=== PATIENT | male | born 1950 | race Caucasian/White ===

== ENCOUNTER → 2024-03-13 | Outpatient (CLI) | payer MEDICARE, MEDICAID, SELFPAY ==
--- NOTE | 2024-03-13 16:00 | XR_ITS ---
Examination: CT brain head without contrast. 2-D sagittal coronal reconstructions Date and time of exam:March 13, 2024 1614 hrs. Comparison October 24, 2023 Indications: Transient ischemic attack episodes beginning 5 months ago, acute right basal ganglia hemorrhage 2.7 x 3.4 x 2.[address] brain scan October 24, 2023 CTDI: vol (mGy):55.8 DLP: (mGycm):1149 Technique: Multiple CT axial sections of the brain have been obtained, 5 mm slice thickness. Contrast has not been administered. 2-D sagittal, coronal reconstructions have been obtained Low dose protocols were performed. One or more of the following dose reduction techniques were used; automated exposure control, adjustment of the mA and/or KV according to patient size, use of iterative reconstruction technique. Findings: No significant ventricular enlargement. Right basal ganglia old infarct, possible very minimal residual hemorrhage in the right basal ganglia image 25 No mass effect or midline shift Basal cisterns are not remarkable. Fourth ventricle is midline. Cranial vault intact. 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
== END | disposition home or self-care (01) ==
LOC: CCTX 16:02
PROVIDERS: PCP Internal Medicine; Referring Provider Psychiatry & Neurology Neurology; Visit Provider Psychiatry & Neurology Neurology
DX: Z86.73 Personal history of transient ischemic attack (TIA), and cerebral infarction without residual deficits (principal)
CPT/HCPCS: 70450

== ENCOUNTER → 2024-07-07 | Outpatient (CLI) | payer MEDICARE, MEDICAID, SELFPAY ==
[2024-07-07 09:42] LABS: Collection Type, Urine Clean Catch
[2024-07-07 09:53] LABS: Basophils # (Auto) 0.1 Thou/mm3 (0.0-0.2); Basophils % (Auto) 1 % (0-2.5); Eosinophils # (Auto) 0.5 Thou/mm3 (0.0-0.5); Eosinophils % (Auto) 8 % (0-10); Hematocrit 28.8 % (41.0-53.0); Hemoglobin 9.3 g/dL (13.5-16.0); Immature Granulocytes % (Auto) 0 % (0-0); Immature Granulocytes Auto 0.01 Thou/mm3 (0.00-0.00); Lymphocytes # (Auto) 2.2 Thou/mm3 (1.0-4.8); Lymphocytes % (Auto) 34 % (10-50); Mean Corpuscular HGB Conc 32.3 g/dl (31.0-37.0); Mean Corpuscular Volume 74 fL (80-100); Monocytes # (Auto) 0.6 Thou/mm3 (0.0-0.8); Monocytes % (Auto) 9 % (0-12); Neutrophils # (Auto) 3.2 Thou/mm3 (1.8-7.7); Neutrophils % (Auto) 48 % (37-80); Nucleated Red Blood Cell % 0 /100 WBC (0); Platelet Count 158 Thou/mm3 (140-440); RDW Standard Deviation 43.7 fL (35.1-43.9); Red Blood Count 3.88 Miln/mm3 (4.50-5.90); White Blood Count 6.5 Thou/mm3 (3.8-10.6)
[2024-07-07 10:10] LABS: Glucose Estimated Average 94 mg/dL (80-131); Hemoglobin A1C 4.9 % Hgb (4.8-6.0)
[2024-07-07 10:17] LABS: Alanine Aminotransferase 34 U/L (10-49); Albumin/Globulin Ratio 1.5 (1.2-2.2); Alkaline Phosphatase 94 U/L (46-116); Anion Gap 8 (7-16); Aspartate Amino Transferase 30 U/L (0-34); BUN/Creatinine Ratio 20 Ratio (12-20); Bilirubin,Total 1.4 mg/dL (0.3-1.2); Blood Urea Nitrogen 14 mg/dL (9-23); Calcium 9.1 mg/dL (8.3-10.6); Calcium (Corrected) 9.1 mg/dL (8.5-10.1); Carbon Dioxide 26.7 mMol/L (20.0-31.0); Cardiac Risk Estimate 2.4 RATIO (4.0-6.7); Chloride 106 mMol/L (98-107); Cholesterol 134 mg/dL (132-200); Creatinine (Component) 0.7 mg/dL (0.6-1.3); Globulin 2.7 gm/dL (2.3-3.5); Glucose 118 mg/dL (74-106); HDL Cholesterol 56 mg/dL (40-60); LDL Cholesterol,Calculated 59 mg/dL (0-130); Osmolality,Calculated 282 (275-295); Sodium 141 mMol/L (136-145); Thyroid Stimulating Hormone 1.49 uIU/mL (0.55-4.78); Total Protein 6.7 gm/dL (5.7-8.2); Triglycerides 94 mg/dL (30-150); eGFR > 60 See Note
[2024-07-07 10:18] LABS: Vitamin B12 399 pg/mL (211-911)
[2024-07-07 10:29] LABS: Bilirubin,Urine Negative (Negative); Blood,Urine Negative (Negative); Clarity,Urine Clear (Clear/Hazy); Color,Urine Yellow (Lt Yel-Yel); Culture Indicated,Urine Not Indicated; Glucose, Urine Negative (Negative); Ketones,Urine Negative (Negative); Leukocyte Esterase,Urine Positive (Negative); Nitrite,Urine Negative (Negative); Protein,Urine Negative (Neg - Trace); RBC,Urine 1 /hpf (0-3); Squamous Epithelial Cell,Urine 2 /hpf (0-5); WBC,Urine 6 /hpf (0-5)
[2024-07-07 10:36] LABS: Creatinine MALB Rnd Ur 76 mg/dL (30-125); Microalbumin Creat Ratio 5 mg/gCrea (<30); Microalbumin, Random Urine 4 mg/L (0-300)
== END | disposition home or self-care (01) ==
PROVIDERS: PCP Internal Medicine; Referring Provider Internal Medicine; Visit Provider Internal Medicine
DX: E11.9 Type 2 diabetes mellitus without complications (principal); E78.5 Hyperlipidemia, unspecified; I10 Essential (primary) hypertension
CPT/HCPCS: 36415; 80053; 80061; 81001; 82043; 82306; 82570; 82607; 83036; 84443; 85025

== ENCOUNTER → 2024-09-03 | Outpatient (CLI) | payer MEDICARE, MEDICAID, SELFPAY ==
[2024-09-03 16:22] LABS: Basophils % (Auto) 1 % (0-2.5); Eosinophils # (Auto) 0.4 Thou/mm3 (0.0-0.5); Eosinophils % (Auto) 5 % (0-10); Hematocrit 26.4 % (41.0-53.0); Immature Granulocytes % (Auto) 0 % (0-0); Immature Granulocytes Auto 0.03 Thou/mm3 (0.00-0.00); Lymphocytes # (Auto) 2.2 Thou/mm3 (1.0-4.8); Lymphocytes % (Auto) 31 % (10-50); Mean Corpuscular Hemoglobin 24.6 pg (25.0-35.0); Mean Corpuscular Volume 75 fL (80-100); Monocytes # (Auto) 0.8 Thou/mm3 (0.0-0.8); Monocytes % (Auto) 11 % (0-12); Neutrophils # (Auto) 3.7 Thou/mm3 (1.8-7.7); Neutrophils % (Auto) 52 % (37-80); Nucleated Red Blood Cell # 0.03 Thou/mm3 (0.00-0.00); Nucleated Red Blood Cell % 0 /100 WBC (0); Platelet Count 159 Thou/mm3 (140-440); Red Blood Count 3.54 Miln/mm3 (4.50-5.90); White Blood Count 7.2 Thou/mm3 (3.8-10.6)
[2024-09-03 16:27] LABS: Hemoglobin 8.7 g/dL (13.5-16.0)
[2024-09-03 16:35] LABS: INR 1.1 (0.9-1.3); Partial Thromboplastin Time 28.2 Seconds (22.0-36.0); Prothrombin Time 12.4 Seconds (9.0-12.2)
[2024-09-03 16:46] LABS: Anion Gap 10 (7-16); BUN/Creatinine Ratio 21 Ratio (12-20); Blood Urea Nitrogen 15 mg/dL (9-23); Calcium 8.7 mg/dL (8.3-10.6); Carbon Dioxide 26.7 mMol/L (20.0-31.0); Chloride 106 mMol/L (98-107); Creatinine (Component) 0.7 mg/dL (0.6-1.3); Glucose 125 mg/dL (74-106); Osmolality,Calculated 286 (275-295); Potassium 4.3 mMol/L (3.4-5.1); Sodium 143 mMol/L (136-145); eGFR > 60 See Note
== END | disposition home or self-care (01) ==
LOC: COPL 15:28
PROVIDERS: PCP Internal Medicine; Referring Provider Internal Medicine; Visit Provider Internal Medicine
DX: I25.10 Atherosclerotic heart disease of native coronary artery without angina pectoris (principal); I48.91 Unspecified atrial fibrillation
CPT/HCPCS: 36415; 80048; 85025; 85610; 85730

== ENCOUNTER → 2024-09-08 | Outpatient (CLI) | payer MEDICARE, MEDICAID, SELFPAY ==
--- NOTE | 2024-09-08 10:00 | XR_ITS ---
Examination: Abdomen sonogram, Limited Date and time of exam: September 08, 2024 1002 hours INDICATIONS: Abdominal distention retaining water this week Technique: Real-time awan scale transabdominal sonographic images of the upper abdomen obtained. Findings: Normal gallbladder Normal common bile duct 0.2 cm Pancreatic head 2.4 cm Liver 13.9 cm irregular contour Normal hepatopedal portal venous flow Patent IVC IMPRESSION: Normal gallbladder Cirrhosis No ascites
== END | disposition home or self-care (01) ==
PROVIDERS: PCP Internal Medicine; Referring Provider Internal Medicine; Visit Provider Internal Medicine
DX: K74.60 Unspecified cirrhosis of liver (principal)
CPT/HCPCS: 76705

== ENCOUNTER → 2024-11-18 | Outpatient (CLI) | payer MEDICARE, SELFPAY | END | disposition home or self-care (01) | PROVIDERS: PCP Internal Medicine; Referring Provider Surgery Vascular Surgery; Visit Provider Student in an Organized Health Care Education/Training Program | DX: I87.332 Chronic venous hypertension (idiopathic) with ulcer and inflammation of left lower extremity (principal); L97.812 Non-pressure chronic ulcer of other part of right lower leg with fat layer exposed; R60.0 Localized edema; R53.1 Weakness; E11.69 Type 2 diabetes mellitus with other specified complication; Z79.84 Long term (current) use of oral hypoglycemic drugs; K74.60 Unspecified cirrhosis of liver; D64.9 Anemia, unspecified; Z87.891 Personal history of nicotine dependence | CPT/HCPCS: 99213; G0463 ==

== ENCOUNTER → 2024-11-24 | Outpatient (CLI) | payer MEDICARE, SELFPAY | END | disposition home or self-care (01) | LOC: SWHD 10:48 | PROVIDERS: PCP Internal Medicine; Referring Provider Internal Medicine; Visit Provider Student in an Organized Health Care Education/Training Program | DX: I87.332 Chronic venous hypertension (idiopathic) with ulcer and inflammation of left lower extremity (principal); L97.812 Non-pressure chronic ulcer of other part of right lower leg with fat layer exposed; R60.0 Localized edema; E11.69 Type 2 diabetes mellitus with other specified complication; Z79.84 Long term (current) use of oral hypoglycemic drugs; K74.60 Unspecified cirrhosis of liver; D64.9 Anemia, unspecified; R53.1 Weakness; Z87.891 Personal history of nicotine dependence ==

== ENCOUNTER → 2024-11-30 | Outpatient (CLI) | payer MEDICARE, SELFPAY ==
[2024-11-30 12:03] LABS: Basophils # (Auto) 0.1 Thou/mm3 (0.0-0.2); Basophils % (Auto) 1 % (0-2.5); Eosinophils # (Auto) 0.5 Thou/mm3 (0.0-0.5); Eosinophils % (Auto) 8 % (0-10); Hematocrit 29.9 % (41.0-53.0); Hemoglobin 9.7 g/dL (13.5-16.0); Immature Granulocytes Auto 0.01 Thou/mm3 (0.00-0.00); Lymphocytes # (Auto) 2.2 Thou/mm3 (1.0-4.8); Lymphocytes % (Auto) 36 % (10-50); Mean Corpuscular HGB Conc 32.4 g/dl (31.0-37.0); Mean Corpuscular Hemoglobin 24.4 pg (25.0-35.0); Mean Corpuscular Volume 75 fL (80-100); Monocytes # (Auto) 0.7 Thou/mm3 (0.0-0.8); Monocytes % (Auto) 11 % (0-12); Neutrophils # (Auto) 2.8 Thou/mm3 (1.8-7.7); Neutrophils % (Auto) 44 % (37-80); Nucleated Red Blood Cell # 0.00 Thou/mm3 (0.00-0.00); Nucleated Red Blood Cell % 0 /100 WBC (0); Platelet Count 138 Thou/mm3 (140-440); RDW Standard Deviation 45.1 fL (35.1-43.9); Red Blood Count 3.98 Miln/mm3 (4.50-5.90); White Blood Count 6.3 Thou/mm3 (3.8-10.6)
[2024-11-30 12:08] LABS: Glucose Estimated Average 108 mg/dL (80-131); Hemoglobin A1C 5.4 % Hgb (4.8-6.0)
[2024-11-30 12:22] LABS: Alanine Aminotransferase 41 U/L (10-49); Albumin, Serum 4.1 gm/dL (3.4-4.8); Albumin/Globulin Ratio 1.6 (1.2-2.2); Alkaline Phosphatase 78 U/L (46-116); Anion Gap 12 (7-16); Aspartate Amino Transferase 36 U/L (0-34); BUN/Creatinine Ratio 11 Ratio (12-20); Bilirubin,Total 1.3 mg/dL (0.3-1.2); Blood Urea Nitrogen 9 mg/dL (9-23); Calcium 9.5 mg/dL (8.3-10.6); Calcium (Corrected) 9.5 mg/dL (8.5-10.1); Carbon Dioxide 27.8 mMol/L (20.0-31.0); Cardiac Risk Estimate 2.3 RATIO (4.0-6.7); Chloride 102 mMol/L (98-107); Cholesterol 142 mg/dL (132-200); Creatinine (Component) 0.8 mg/dL (0.6-1.3); Globulin 2.6 gm/dL (2.3-3.5); Glucose 116 mg/dL (74-106); HDL Cholesterol 61 mg/dL (40-60); LDL Cholesterol,Calculated 60 mg/dL (0-130); Osmolality,Calculated 282 (275-295); Potassium 4.2 mMol/L (3.4-5.1); Sodium 142 mMol/L (136-145); Total Protein 6.7 gm/dL (5.7-8.2); Triglycerides 106 mg/dL (30-150); eGFR > 60 See Note
== END | disposition home or self-care (01) ==
LOC: COPL 10:15
PROVIDERS: PCP Internal Medicine; Referring Provider Internal Medicine; Visit Provider Internal Medicine
DX: E11.9 Type 2 diabetes mellitus without complications (principal); I10 Essential (primary) hypertension; E78.5 Hyperlipidemia, unspecified
CPT/HCPCS: 36415; 80053; 80061; 82043; 82570; 83036; 85025

== ENCOUNTER → 2024-12-08 | Outpatient (CLI) | payer MEDICARE, SELFPAY | END | disposition home or self-care (01) | LOC: SWHD 10:38 | PROVIDERS: PCP Internal Medicine; Referring Provider Internal Medicine; Visit Provider Surgery | DX: I87.332 Chronic venous hypertension (idiopathic) with ulcer and inflammation of left lower extremity (principal); L97.822 Non-pressure chronic ulcer of other part of left lower leg with fat layer exposed; L97.811 Non-pressure chronic ulcer of other part of right lower leg limited to breakdown of skin; R60.0 Localized edema; E11.69 Type 2 diabetes mellitus with other specified complication; Z79.84 Long term (current) use of oral hypoglycemic drugs; K74.60 Unspecified cirrhosis of liver; D64.9 Anemia, unspecified; R53.1 Weakness; Z87.891 Personal history of nicotine dependence | CPT/HCPCS: 29580; A9270 ==

== ENCOUNTER → 2024-12-15 | Outpatient (CLI) | payer MEDICARE, SELFPAY | END | disposition home or self-care (01) | LOC: SWHD 11:06 | PROVIDERS: PCP Internal Medicine; Referring Provider Internal Medicine; Visit Provider Student in an Organized Health Care Education/Training Program | DX: I87.332 Chronic venous hypertension (idiopathic) with ulcer and inflammation of left lower extremity (principal); L97.822 Non-pressure chronic ulcer of other part of left lower leg with fat layer exposed; L97.811 Non-pressure chronic ulcer of other part of right lower leg limited to breakdown of skin; R60.0 Localized edema; E11.69 Type 2 diabetes mellitus with other specified complication; Z79.84 Long term (current) use of oral hypoglycemic drugs; K74.60 Unspecified cirrhosis of liver; D64.9 Anemia, unspecified; R53.1 Weakness; Z87.891 Personal history of nicotine dependence | CPT/HCPCS: 99212; G0463 ==

== ENCOUNTER → 2024-12-23 | Outpatient (CLI) | payer MEDICARE, SELFPAY | END | disposition home or self-care (01) | LOC: SWHD 08:15 | PROVIDERS: PCP Internal Medicine; Referring Provider Internal Medicine; Visit Provider Student in an Organized Health Care Education/Training Program | DX: I87.332 Chronic venous hypertension (idiopathic) with ulcer and inflammation of left lower extremity (principal); L97.822 Non-pressure chronic ulcer of other part of left lower leg with fat layer exposed; L97.811 Non-pressure chronic ulcer of other part of right lower leg limited to breakdown of skin; R60.0 Localized edema; E11.69 Type 2 diabetes mellitus with other specified complication; Z79.84 Long term (current) use of oral hypoglycemic drugs; K74.60 Unspecified cirrhosis of liver; D64.9 Anemia, unspecified; R53.1 Weakness; Z87.891 Personal history of nicotine dependence | CPT/HCPCS: 29580; A9270 ==

== ENCOUNTER → 2024-12-24 | Outpatient (CLI) | payer MEDICARE, SELFPAY ==
[2024-12-24 11:32] LABS: Basophils # (Auto) 0.1 Thou/mm3 (0.0-0.2); Basophils % (Auto) 1 % (0-2.5); Eosinophils # (Auto) 0.5 Thou/mm3 (0.0-0.5); Eosinophils % (Auto) 9 % (0-10); Hematocrit 28.2 % (41.0-53.0); Hemoglobin 9.1 g/dL (13.5-16.0); Immature Granulocytes Auto 0.03 Thou/mm3 (0.00-0.00); Lymphocytes # (Auto) 1.9 Thou/mm3 (1.0-4.8); Lymphocytes % (Auto) 33 % (10-50); Mean Corpuscular HGB Conc 32.3 g/dl (31.0-37.0); Mean Corpuscular Hemoglobin 24.0 pg (25.0-35.0); Mean Corpuscular Volume 74 fL (80-100); Monocytes # (Auto) 0.7 Thou/mm3 (0.0-0.8); Monocytes % (Auto) 12 % (0-12); Neutrophils # (Auto) 2.5 Thou/mm3 (1.8-7.7); Neutrophils % (Auto) 44 % (37-80); Nucleated Red Blood Cell # 0.02 Thou/mm3 (0.00-0.00); Nucleated Red Blood Cell % 0 /100 WBC (0); Platelet Count 108 Thou/mm3 (140-440); RDW Standard Deviation 44.6 fL (35.1-43.9); Red Blood Count 3.79 Miln/mm3 (4.50-5.90); White Blood Count 5.7 Thou/mm3 (3.8-10.6)
[2024-12-24 11:39] LABS: INR 1.1 (0.9-1.3); Partial Thromboplastin Time 27.3 Seconds (22.0-36.0); Prothrombin Time 11.4 Seconds (9.0-12.2)
[2024-12-24 11:47] LABS: Anion Gap 9 (7-16); BUN/Creatinine Ratio 15 Ratio (12-20); Blood Urea Nitrogen 12 mg/dL (9-23); Calcium 8.9 mg/dL (8.3-10.6); Carbon Dioxide 28.4 mMol/L (20.0-31.0); Chloride 105 mMol/L (98-107); Creatinine (Component) 0.8 mg/dL (0.6-1.3); Glucose 127 mg/dL (74-106); Osmolality,Calculated 284 (275-295); Potassium 3.9 mMol/L (3.4-5.1); Sodium 142 mMol/L (136-145); eGFR > 60 See Note
== END | disposition home or self-care (01) ==
LOC: COPL 10:26
PROVIDERS: PCP Internal Medicine; Referring Provider Internal Medicine; Visit Provider Internal Medicine
DX: I25.10 Atherosclerotic heart disease of native coronary artery without angina pectoris (principal); I48.91 Unspecified atrial fibrillation
CPT/HCPCS: 36415; 80048; 85025; 85610; 85730

== ENCOUNTER → 2024-12-29 | Outpatient (CLI) | payer MEDICARE, SELFPAY ==
[2024-12-29 11:38] LABS: Misc Send Out* See Sep Rpt
[2024-12-29 11:56] LABS: Basophils # (Auto) 0.0 Thou/mm3 (0.0-0.2); Basophils % (Auto) 1 % (0-2.5); Eosinophils # (Auto) 0.4 Thou/mm3 (0.0-0.5); Eosinophils % (Auto) 8 % (0-10); Hematocrit 28.9 % (41.0-53.0); Hemoglobin 9.6 g/dL (13.5-16.0); Immature Granulocytes Auto 0.01 Thou/mm3 (0.00-0.00); Lymphocytes # (Auto) 1.9 Thou/mm3 (1.0-4.8); Lymphocytes % (Auto) 34 % (10-50); Mean Corpuscular HGB Conc 33.2 g/dl (31.0-37.0); Mean Corpuscular Hemoglobin 24.6 pg (25.0-35.0); Mean Corpuscular Volume 74 fL (80-100); Monocytes # (Auto) 0.8 Thou/mm3 (0.0-0.8); Monocytes % (Auto) 14 % (0-12); Neutrophils # (Auto) 2.5 Thou/mm3 (1.8-7.7); Neutrophils % (Auto) 44 % (37-80); Nucleated Red Blood Cell # 0.02 Thou/mm3 (0.00-0.00); Nucleated Red Blood Cell % 0 /100 WBC (0); RDW Standard Deviation 45.3 fL (35.1-43.9); Red Blood Count 3.90 Miln/mm3 (4.50-5.90); White Blood Count 5.6 Thou/mm3 (3.8-10.6)
[2024-12-29 12:03] LABS: INR 1.1 (0.9-1.3); Partial Thromboplastin Time 27.2 Seconds (22.0-36.0); Prothrombin Time 11.4 Seconds (9.0-12.2)
[2024-12-29 12:08] LABS: Alanine Aminotransferase 40 U/L (10-49); Albumin, Serum 4.6 gm/dL (3.4-4.8); Alkaline Phosphatase 82 U/L (46-116); Aspartate Amino Transferase 37 U/L (0-34); Bilirubin,Direct 0.4 mg/dL (0.0-0.3); Bilirubin,Total 1.0 mg/dL (0.3-1.2); Blood Urea Nitrogen 13 mg/dL (9-23); Creatinine (Component) 0.8 mg/dL (0.6-1.3); Total Protein 7.5 gm/dL (5.7-8.2); eGFR > 60 See Note
[2024-12-29 12:12] LABS: Iron 180 mcg/dL (65-175); Percent Iron Saturation 63 % (20-55); Total Iron Binding Capacity 284 mcg/dL (250-425); Unsaturated Iron Binding 104 (225-295)
[2024-12-29 12:13] LABS: Ammonia < 10 uMol/L (11-32)
[2024-12-29 12:28] LABS: AFP Non-Pregnant 5.60 ng/mL (<8.10); Hepatitis B Surface Antigen Non Reactive (Non React)
[2024-12-29 12:48] LABS: Platelet Count 131 Thou/mm3 (140-440)
[2025-01-05 19:49] LABS: HCV RNA, PCR <15 NOT DETECTED IU/mL
[2025-01-06 06:31] LABS: ANA Screen, IFA NEGATIVE (NEGATIVE); Actin Antibody (IgG)* <20 U; Alpha-1-Antitrypsin* 166 mg/dL (83-199); Ceruloplasmin* 21 mg/dL (14-30); HCV RNA, PCR Log IU <1.18 NOT DETECTED Log IU/mL; Mitochondrial Ab NEGATIVE (NEGATIVE); Sm Antibody* <1.0 NEG AI (<1.0 NEGATIVE)
== END | disposition home or self-care (01) ==
LOC: COPL 11:05
PROVIDERS: PCP Internal Medicine; Referring Provider Student in an Organized Health Care Education/Training Program; Visit Provider Student in an Organized Health Care Education/Training Program
DX: K21.00 Gastro-esophageal reflux disease with esophagitis, without bleeding (principal); R10.13 Epigastric pain; K74.60 Unspecified cirrhosis of liver
CPT/HCPCS: 36415; 80076; 82103; 82105; 82140; 82390; 82565; 83540; 83550; 84520; 85025; 85610; 85730; 86015; 86038; 86235; 86255; 87340; 87522

== ENCOUNTER → 2024-12-30 | Outpatient (CLI) | payer MEDICARE, SELFPAY | END | disposition home or self-care (01) | LOC: SWHD 09:55 | PROVIDERS: PCP Internal Medicine; Referring Provider Internal Medicine; Visit Provider Student in an Organized Health Care Education/Training Program | DX: I87.332 Chronic venous hypertension (idiopathic) with ulcer and inflammation of left lower extremity (principal); L97.822 Non-pressure chronic ulcer of other part of left lower leg with fat layer exposed; R60.0 Localized edema; E11.69 Type 2 diabetes mellitus with other specified complication; Z79.84 Long term (current) use of oral hypoglycemic drugs; K74.60 Unspecified cirrhosis of liver; D64.9 Anemia, unspecified; Z87.891 Personal history of nicotine dependence; R53.1 Weakness | CPT/HCPCS: 99213; A9270; G0463 ==

== ENCOUNTER → 2025-01-06 | Outpatient (CLI) | payer MEDICARE, SELFPAY | END | disposition home or self-care (01) | LOC: SWHD 09:58 | PROVIDERS: PCP Internal Medicine; Referring Provider Internal Medicine; Visit Provider Student in an Organized Health Care Education/Training Program | DX: I87.332 Chronic venous hypertension (idiopathic) with ulcer and inflammation of left lower extremity (principal); L97.822 Non-pressure chronic ulcer of other part of left lower leg with fat layer exposed; R60.0 Localized edema; E11.69 Type 2 diabetes mellitus with other specified complication; Z79.84 Long term (current) use of oral hypoglycemic drugs; K74.60 Unspecified cirrhosis of liver; D64.9 Anemia, unspecified; Z87.891 Personal history of nicotine dependence; R53.1 Weakness | CPT/HCPCS: 29580 ==

== ENCOUNTER → 2025-01-15 | Outpatient (CLI) | payer MEDICARE, SELFPAY | END | disposition home or self-care (01) | LOC: SWHD 10:02 | PROVIDERS: PCP Internal Medicine; Referring Provider Internal Medicine; Visit Provider Surgery | DX: I87.332 Chronic venous hypertension (idiopathic) with ulcer and inflammation of left lower extremity (principal); L97.822 Non-pressure chronic ulcer of other part of left lower leg with fat layer exposed; R60.0 Localized edema; E11.69 Type 2 diabetes mellitus with other specified complication; Z79.84 Long term (current) use of oral hypoglycemic drugs; K74.60 Unspecified cirrhosis of liver; D64.9 Anemia, unspecified; Z87.891 Personal history of nicotine dependence; R53.1 Weakness | CPT/HCPCS: 29581 ==

== ENCOUNTER → 2025-01-22 | Outpatient (CLI) | payer MEDICARE, SELFPAY | END | disposition home or self-care (01) | LOC: SWHD 10:00 | PROVIDERS: PCP Internal Medicine; Referring Provider Internal Medicine; Visit Provider Surgery | DX: I87.331 Chronic venous hypertension (idiopathic) with ulcer and inflammation of right lower extremity (principal); L97.812 Non-pressure chronic ulcer of other part of right lower leg with fat layer exposed; R60.0 Localized edema; E11.69 Type 2 diabetes mellitus with other specified complication; Z79.84 Long term (current) use of oral hypoglycemic drugs; K74.60 Unspecified cirrhosis of liver; D64.9 Anemia, unspecified; Z87.891 Personal history of nicotine dependence; R53.1 Weakness | CPT/HCPCS: 99213; G0463 ==

== ENCOUNTER → 2025-01-26 | Outpatient (CLI) | payer MEDICARE, SELFPAY ==
--- NOTE | 2025-01-26 14:00 | XR_ITS ---
Examination: Abdomen sonogram, Limited Date and time of exam: January 26, 2025, 1409 hours INDICATIONS: Cirrhosis diagnosis Technique: Real-time awan scale transabdominal sonographic images of the upper abdomen obtained. Findings: Gallbladder sludge, negative for gallstones Gallbladder wall 0.3 cm no edema Common bile duct 0.3 cm Pancreatic head 3.0 cm Liver 12.0 cm lobular contour fatty infiltration no focal liver lesions Normal hepatopetal portal venous flow Patent IVC IMPRESSION: Gallbladder sludge, negative for gallstones, negative for cholecystitis Cirrhosis, no focal liver lesions
--- NOTE | 2025-01-26 15:18 | EKG_ITS ---
[facility] Test Date: 2025-01-26 Pat Name: ESTHER ONOFRE Department: Room: - Gender: Male [employer] Operator: [place] : [id number] Requested By: Katelyn Vance Order Number: [id number] Reading MD: Katelyn Vance Measurements Intervals [place] Rate: 72 P: 20 RI: 138 QRS: 54 QRSD: 85 T: 50 QT: 414 QTc: 455 Interpretive Statements SINUS RHYTHM MINIMAL ST DEPRESSION [0.025+ mV ST DEPRESSION] Compared to ECG 10/24/2023 10:40:07 ST (T wave) deviation now present /store/S0/[id number].pdf
[2025-01-26 16:08] LABS: Basophils # (Auto) 0.1 Thou/mm3 (0.0-0.2); Basophils % (Auto) 1 % (0-2.5); Eosinophils # (Auto) 0.4 Thou/mm3 (0.0-0.5); Eosinophils % (Auto) 6 % (0-10); Hematocrit 28.0 % (41.0-53.0); Hemoglobin 9.2 g/dL (13.5-16.0); Immature Granulocytes Auto 0.02 Thou/mm3 (0.00-0.00); Lymphocytes # (Auto) 2.2 Thou/mm3 (1.0-4.8); Lymphocytes % (Auto) 34 % (10-50); Mean Corpuscular HGB Conc 32.9 g/dl (31.0-37.0); Mean Corpuscular Hemoglobin 24.7 pg (25.0-35.0); Mean Corpuscular Volume 75 fL (80-100); Monocytes # (Auto) 0.7 Thou/mm3 (0.0-0.8); Monocytes % (Auto) 11 % (0-12); Neutrophils # (Auto) 3.1 Thou/mm3 (1.8-7.7); Neutrophils % (Auto) 48 % (37-80); Nucleated Red Blood Cell # 0.02 Thou/mm3 (0.00-0.00); Nucleated Red Blood Cell % 0 /100 WBC (0); Platelet Count 125 Thou/mm3 (140-440); RDW Standard Deviation 46.5 fL (35.1-43.9); Red Blood Count 3.73 Miln/mm3 (4.50-5.90); White Blood Count 6.4 Thou/mm3 (3.8-10.6)
[2025-01-26 16:15] LABS: INR 1.1 (0.9-1.3); Partial Thromboplastin Time 29.1 Seconds (22.0-36.0); Prothrombin Time 11.4 Seconds (9.0-12.2)
[2025-01-26 16:27] LABS: Alanine Aminotransferase 30 U/L (10-49); Albumin, Serum 4.3 gm/dL (3.4-4.8); Albumin/Globulin Ratio 1.8 (1.2-2.2); Alkaline Phosphatase 70 U/L (46-116); Anion Gap 9 (7-16); Aspartate Amino Transferase 31 U/L (0-34); BUN/Creatinine Ratio 14 Ratio (12-20); Bilirubin,Total 1.0 mg/dL (0.3-1.2); Blood Urea Nitrogen 11 mg/dL (9-23); Calcium 9.4 mg/dL (8.3-10.6); Calcium (Corrected) 9.4 mg/dL (8.5-10.1); Carbon Dioxide 28.5 mMol/L (20.0-31.0); Chloride 106 mMol/L (98-107); Creatinine (Component) 0.8 mg/dL (0.6-1.3); Globulin 2.4 gm/dL (2.3-3.5); Glucose 95 mg/dL (74-106); Osmolality,Calculated 284 (275-295); Potassium 4.0 mMol/L (3.4-5.1); Sodium 143 mMol/L (136-145); Total Protein 6.7 gm/dL (5.7-8.2); eGFR > 60 See Note
== END | disposition home or self-care (01) ==
PROVIDERS: PCP Internal Medicine Gastroenterology; Referring Provider Internal Medicine Gastroenterology; Visit Provider Internal Medicine Gastroenterology
DX: K74.60 Unspecified cirrhosis of liver (principal); K82.8 Other specified diseases of gallbladder; Z01.818 Encounter for other preprocedural examination; I73.9 Peripheral vascular disease, unspecified; Z79.01 Long term (current) use of anticoagulants
CPT/HCPCS: 36415; 76705; 80053; 85025; 85610; 85730; 93005

== ENCOUNTER → 2025-01-29 | Outpatient (CLI) | payer MEDICARE, SELFPAY | END | disposition home or self-care (01) | LOC: SWHD 14:06 | PROVIDERS: PCP Internal Medicine; Referring Provider Internal Medicine; Visit Provider Physician Assistant | DX: I87.331 Chronic venous hypertension (idiopathic) with ulcer and inflammation of right lower extremity (principal); L97.812 Non-pressure chronic ulcer of other part of right lower leg with fat layer exposed; R60.0 Localized edema; E11.69 Type 2 diabetes mellitus with other specified complication; Z79.84 Long term (current) use of oral hypoglycemic drugs; K74.60 Unspecified cirrhosis of liver; D64.9 Anemia, unspecified; Z87.891 Personal history of nicotine dependence; R53.1 Weakness | CPT/HCPCS: 99212; G0463 ==

== ENCOUNTER 2025-02-15 15:56 | Emergency (ER) | payer MEDICARE, OTHER, SELFPAY ==
[2025-02-15 16:46] VITALS: BP 141/65; PULSE 76; RESP 18; TEMP 36.6; O2SAT 97; BMI 21.5
--- NOTE | 2025-02-15 16:58 | PD.EDRME ---
Rapid Medical Screening Exam RME Arrival date/time: 02/15/25 15:56 This is a case of 74-year-old male who came into the emergency room due to painful urination lower abdominal pain radiating to the left flank patient was seen in call area where he was treated with urinary tract infection they got a call from the hospital that they need an IV antibiotic thus the patient decided to sought consult here in the emergency room Chief Complaint: General Adult/Misc Complain Time Seen by Provider: 02/15/25 16:01 Vital signs: Vital Signs Temperature 97.9 F 02/15/25 16:46 Pulse Rate 76 02/15/25 16:46 Respiratory Rate 18 02/15/25 16:46 Blood Pressure 141/65 H 02/15/25 16:46 Pulse Oximetry (%) 97 02/15/25 16:46 Oxygen Delivery Method Room Air 02/15/25 16:46 Exam: Abdominal exam is mild tenderness on the left lower quadrant and left flank but no guarding no rebound no rigidity no CVA tenderness Clinical Impression: Abdominal pain urinary tract infection
--- NOTE | 2025-02-15 17:10 | PC.NURSE ---
Pt stated that he did not want to do test or blood work since he just did them [facility]. Pt stated he was leaving home and going to [facility] tomorrow morning.
== END 2025-02-17 19:17 | disposition left against medical advice (07) ==
PROVIDERS: Emergency Provider Emergency Medicine; PCP Internal Medicine
DX: R30.9 Painful micturition, unspecified (principal); R10.30 Lower abdominal pain, unspecified; Z53.29 Procedure and treatment not carried out because of patient's decision for other reasons
CPT/HCPCS: 80053; 81001; 83690; 85025; 99281